=== PATIENT | male | born 1955 | race Hispanic/Latino ===

== ENCOUNTER 2024-07-10 17:13 | Inpatient (IN) | payer MEDICARE ==
[~2024-07-10] VITALS: Ht 180.3 cm; Wt 73.8 kg
[2024-07-10 17:38] LABS: BASOPHILS # (AUTO) 0.03 K/uL (0.00-0.20); BASOPHILS % (AUTO) 0.1 % (0.0-5.0); EOSINOPHILS # (AUTO) 0.09 K/uL (0.00-0.70); EOSINOPHILS % (AUTO) 0.4 % (0.0-8.0); IMMATURE GRANULOCYTE ABSOLUTE 0.19 K/uL (0-1); LYMPHOCYTES # (AUTO) 1.6 K/uL (1.0-4.8); MEAN CORPUSCULAR HEMOGLOBIN 31.6 pg (27.0-33.0); MEAN CORPUSCULAR HGB CONC 34.9 g/dL (32.0-36.0); MEAN CORPUSCULAR VOLUME 90.6 fL (79-99); MONOCYTES # (AUTO) 1.6 K/uL (0.1-1.0); MONOCYTES % (AUTO) 6.9 % (3.0-13.0); NEUTROPHILS # (AUTO) 19.7 K/uL (1.8-7.7); NEUTROPHILS % (AUTO) 84.8 % (40.0-77.0); PLATELET COUNT (AUTO) 144 K/uL (130-400); RED BLOOD CELL COUNT(AUTO) 5.41 MIL/uL (4.50-6.20); RED CELL DISTRIBUTION WIDTH 12.6 % (11.0-15.5); WHITE BLOOD COUNT (AUTO) 23.2 K/uL (4.8-10.8)
[2024-07-10 17:45] LABS: CREATININE 1.6 mg/dL (0.5-1.3)
[2024-07-10 18:01] LABS: B-TYPE NATRIURETIC PEPTIDE 123 pg/mL (0-100)
--- NOTE | 2024-07-10 18:02 | HMCIMG ---
Exam Type: CHEST 1VW Clinical Information: CHEST PAIN Comparison: None Findings: The lungs are clear of infiltrates. The heart is normal in size. The bony and soft tissue structures of the chest are unremarkable. Impression: Clear lungs.
--- NOTE | 2024-07-10 18:31 | ERN ---
General Chief Complaint: Palpitations Stated Complaint: HYPERTENSION, PALPITATIONS Time Seen by MD: 18:00 Time Seen by Midlevel: 18:00 Source: patient History of Present Illness Initial Comments Patient is a 68-year-old male with a past medical history of coronary artery disease, and hypertension presenting to the emergency department for evaluation of palpitations that started yesterday morning. He was seen by his primary care doctor earlier today and was sent to the emergency department for an abnormal EKG. The patient was hypertensive with a blood pressure of 220 at his clinic and he was given a blood pressure medication prior to arrival. Patient does state he has a history of ST depressions that has been normal for him for the last 20 years. Currently he denies any chest pain, palpitations, or any other symptoms. Allergies: Coded Allergies: No Known Allergies (Unverified Allergy, Unknown, 07/10/24) Past Medical History Past Medical History: Heart Disease, Hypertension, Kidney Infection Past Surgical History: Other Surgical History Other: HEART STENTS ROS Dictation CONSTITUTIONAL: Negative except for HPI HEAD/FACE: Negative except for HPI EENT: Negative except for HPI RESPIRATORY: Negative except for HPI GASTROINTESTINAL/ABDOMINAL: Negative except for HPI GENITOURINARY: Negative except for HPI MUSCULOSKELETAL: Negative except for HPI INTEGUMENTARY: Negative except for HPI NEUROLOGICAL/PSYCH: Negative except for HPI HEMATOLOGIC/LYMPHATIC: Negative except for HPI All Systems Negative, Except as noted above. 13 point review of systems assessed and all negative except for above. Physical Exam Physical Exam Dictation Vital Signs reviewed General Appearance: Alert, oriented x 3, no acute distress, well developed, nourished. Head and Face: non-traumatic. Eyes: PERRL, pink conjunctivas, eyelid no trauma, anterior chamber with arcus senilis. Ears: Pinnas intact and no signs of trauma or erythema ear canals clear and no discharge TM no erythema Nose: No discharge, no bleeding. Oropharynx: Mouth normal, tongue pink, pharynx clear,no erythema, tonsils no exudates, no abscesses noted, mucous membrane moist Neck: Supple, non-tender, no thyromegaly, no masses, no JVD, no bruits Breast:Deferred Chest:No tenderness, no crepitus, no paradoxical movement, no retractions Lungs:Clear, well-ventilated, symmetric, no rales, no wheezing, no rhonchi, no stridor, good breath sounds bilaterally Heart: Regular rate, regular rhythm, no murmur, no gallops Vascular: no peripheral edema, Abdomen: Soft, positive bowel sounds, nondistended, no guarding, nontender, no rebound, no masses no hepatomegaly, no splenomegaly, no Meza's sign, no hernias. Rectal: Deferred Genital: Deferred Neurological: Normal speech, motor function intact, sensory function intact Musculoskeletal: Neck nontender, full range of motion, back nontender, full range of motion, Extremities: nontender, full range of motion Skin: Color pink, dry, no turgor, no rash, no lacerations, no abrasions, no contusions. Lymphatic: Deferred Results Laboratory and Microbiology Lab and Micro Result Laboratory Tests Test 07/10/24 17:32 07/10/24 20:18 White Blood Count 23.2 K/uL (4.8-10.8) H Red Blood Count 5.41 MIL/uL (4.50-6.20) Hemoglobin 17.1 g/dL (14.0-18.0) Hematocrit 49.0 % (42-54) Mean Corpuscular Volume 90.6 fL (79-99) Mean Corpuscular Hemoglobin 31.6 pg (27.0-33.0) Mean Corpuscular Hemoglobin Concent 34.9 g/dL (32.0-36.0) Red Cell Distribution Width 12.6 % (11.0-15.5) Platelet Count 144 K/uL (130-400) Mean Platelet Volume 10.6 fL (7.5-10.5) H Immature Granulocyte % (Auto) 0.8 % (0-1) Neutrophils (%) (Auto) 84.8 % (40.0-77.0) H Lymphocytes (%) (Auto) 7.0 % (21.0-51.0) L Monocytes (%) (Auto) 6.9 % (3.0-13.0) Eosinophils (%) (Auto) 0.4 % (0.0-8.0) Basophils (%) (Auto) 0.1 % (0.0-5.0) Neutrophils # (Auto) 19.7 K/uL (1.8-7.7) H Lymphocytes # (Auto) 1.6 K/uL (1.0-4.8) Monocytes # (Auto) 1.6 K/uL (0.1-1.0) H Eosinophils # (Auto) 0.09 K/uL (0.00-0.70) Basophils # (Auto) 0.03 K/uL (0.00-0.20) Absolute Immature Granulocyte (auto 0.19 K/uL (0-1) Nucleated Red Blood Cells 0.0 % (0.0-0.19) White Cell Morphology Comment See comments Sodium Level 137 mmol/L (136-145) Potassium Level 4.0 mmol/L (3.5-5.1) Chloride Level 100 mmol/L (101-111) L Carbon Dioxide Level 26 mmol/L (21-32) Blood Urea Nitrogen 25 mg/dL (7-18) H Creatinine 1.6 mg/dL (0.5-1.3) H Glomerular Filtration Rate Calc 46 mL/min (>90) Random Glucose 137 mg/dL (70-105) H Hemoglobin A1c 5.4 % (4.0-6.0) Estimated Average Glucose (eAG) 108 mg/dL (70-126) Total Calcium 9.8 mg/dL (8.5-10.1) Total Creatine Kinase 289 U/L (21-232) H Troponin I High Sensitivity 135 ng/L (4-75) *H B-Type Natriuretic Peptide 123 pg/mL (0-100) H Urine Color LIGHT-YELLOW (YELLOW) Urine Appearance CLEAR (CLEAR) Urine pH 5.5 (5.0-8.0) Urine Specific [place] 1.012 (1.001-1.031) Urine Protein 100 mg/dL (NEGATIVE) H Urine Glucose (UA) NEGATIVE mg/dL (NEGATIVE) Urine Ketones NEGATIVE mg/dL (NEGATIVE) Urine Occult Blood MODERATE (NEGATIVE) H Urine Nitrate NEGATIVE (NEGATIVE) Urine Bilirubin NEGATIVE mg/dL (NEGATIVE) Urine Urobilinogen 0.2 mg/dL (0.2-1.0) Urine Leukocyte Esterase NEGATIVE Alfredo/uL Urine RBC 0-1 /HPF (0-1) Urine WBC 0-1 /HPF (0-1) Urine Bacteria None /HPF (None Seen) Urine Hyaline Casts 2-5 /LPF (0-1 /LPF) H Labs Reviewed?: Yes MDM MDM: Differential diagnosis: ACS, NSTEMI, cardiac arrhythmia, electrolyte abnormality, dehydration Rationale: Tests considered and ordered secondary to shared decision making include: Previous outside records reviewed: Old ER visits. Risk of complication and/or morbidity or mortality of patient management: None Medications-Per medication reconciliation Need for hospitalization: Patient does meet criteria for hospitalization. Need for emergency major/minor surgery: No There are no social concerns with this patient. Prescription drug management Prescriptions will include symptomatic care Patient's prior external medical records from other ER visits were reviewed by me as indicated. Prior testing and results from previous visits were reviewed. Prior tests were taken into account with medical decision making and resource utilization, independent historian/historians were used to obtain complete medical history. I independently interpreted the test that were performed, results were reviewed by me and considered findings on radiology if ordered. Medical management and examination interpretation discussions were had by me with other qualified healthcare professionals as indicated for the patient's care. ED Course Orders Procedure Category Date Status Time Vital Signs Per CPOE 07/10/24 Transmitted Routine 17:20 B-Type Natriuretic LAB 07/10/24 Complete Peptide 17:20 Chest 1vw RAD 07/10/24 Resulted 17:20 12 Lead Ekg Tracing- EKG 07/10/24 Complete Technical 17:20 Oxygen By Nc/Pulse Ox CPOE 07/10/24 Transmitted 17:20 Maintain Iv CPOE 07/10/24 Transmitted 17:20 Iv Insertion CPOE 07/10/24 Transmitted 17:20 Cardiac Monitoring CPOE 07/10/24 Transmitted 17:20 Pulse Oximetry With CPOE 07/10/24 Transmitted Vs And Prn 17:20 Cbc With Differential LAB 07/10/24 Complete 17:20 Activity: Br W/Brp CPOE 07/10/24 Transmitted With Assist 17:20 Creatine Kinase, Total LAB 07/10/24 Complete 17:20 Troponin I High LAB 07/10/24 Complete Sensitivity 17:20 Urinalysis Profile LAB 07/10/24 Complete 17:20 Basic Metabolic Panel LAB 07/10/24 Complete 17:20 12 Lead Ekg Tracing- EKG 07/10/24 Logged Technical 18:24 Aspirin 325mg Tab PHA 07/10/24 Complete (Aspirin 325mg Tab) 18:30 Current Medications Medications (Trade) Dose Ordered Sig/Eleni Route PRN Reason Start Time Stop Time Status Last Admin Dose Admin Aspirin (Aspirin 325mg Tab) 325 mg ONCE ONCE PO 07/10/24 18:30 07/10/24 18:31 DC 07/10/24 19:47 Vital Signs Date Time Temp Pulse Resp B/P (MAP) Pulse Ox O2 Delivery O2 Flow Rate FiO2 07/10/24 21:55 66 16 159/75 97 Room Air* 0 07/10/24 19:48 98.1 69 16 179/81 97 Room Air* 0 07/10/24 17:15 98.2 86 16 165/89 98 Room Air 0 [facility] [address] [place] [address] IMAGING REPORT Signed PATIENT: WILTON OROZCO MR#: [id number] : 1955 SEX: M AGE: 68 LOCATION: [facility] ORDER 20 STATUS: REG ER REPORT#: [id number] SERVICE 19 REASON: CHEST PAIN ORDERING PHYSICIAN: SAMSON OLSON PROCEDURE: CXR1VW - CHEST 1VW Exam Type: CHEST 1VW Clinical Information: CHEST PAIN Comparison: None Findings: The lungs are clear of infiltrates. The heart is normal in size. The bony and soft tissue structures of the chest are unremarkable. Impression: Clear lungs. DICTATED BY: KERWIN LARIOS MD DATE: 07/10/241757 ELECTRONICALLY SIGNED BY: KERWIN LARIOS MD DATE: 07/10/241801 HEART Score Response (Comments) Value History: Low suspicion (0) 0 EKG: Significant ST depression 2 Age: > 65yrs (+2) 2 Risk Factors: 1-2 risk factors (+1) 1 Initial Troponin: 1-3x Normal Limit (+1) 1 HEART Score Risk: Mod Risk for MACE (4-6) Total 6 DX & DISP Disposition: Inpatient Decision to Admit Date: Jul 10, 2024 Departure Impression: Primary Impression: Elevated troponin Additional Impressions: DIAN (acute kidney injury), Leukocytosis, Palpitations Condition: Stable Referrals: SELF,REFERRAL (PCP) I have reviewed the case, and I agree with, Diagnosis and Plan I performed the substantive portion of the visit. I have reviewed and personally made and approve the management plan that is documented in the note by myself or the ADELINE. I acknowledge for responsibility for the patient's management plan. SAMSON OLSON Jul 10, 2024 18:31
--- NOTE | 2024-07-10 19:03 | EKG ---
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
[2024-07-10] MEDS: ASPIRIN 325MG TAB PO ONE (19:47)
[2024-07-10 20:43] LABS: APPEARANCE,URINE CLEAR (CLEAR); BILIRUBIN,URINE NEGATIVE (NEGATIVE); COLOR,URINE LIGHT-YELLOW (YELLOW); GLUCOSE, URINE (UA) NEGATIVE (NEGATIVE); KETONES,URINE NEGATIVE (NEGATIVE); LEUKOCYTE ESTERASE ,URINE NEGATIVE Leu/uL (NEGATIVE); NITRATE,URINE NEGATIVE (NEGATIVE); OCCULT BLOOD,URINE MODERATE (NEGATIVE); PH,URINE 5.5 (5.0-8.0); PROTEIN,URINE 100 mg/dL (NEGATIVE); UROBILINOGEN,URINE 0.2 mg/dL (0.2-1.0)
[2024-07-10 20:51] LABS: ADD UA MICROSCOPIC YES
[2024-07-10 20:53] LABS: MUCUS,URINE RARE LPF (None Seen); RBC,URINE 0-1 /HPF (0-1); WBC,URINE 0-1 /HPF (0-1)
--- NOTE | 2024-07-10 23:08 | HP ---
[facility] Date of Service: Jul 10, 2024 Time of Service: 23:07 PCP: Self-referral HISTORY OF PRESENT ILLNESS: This is a 68-year-old male with past medical history of coronary artery disease, hypertension and hyperlipidemia who presents to the ED for complaints of palpitation which started yesterday morning and he checked his blood pressure and it was 210/100 he said. Patient states he was seen by his primary care doctor today and was sent to the emergency department for an abnormal EKG. Patient reports in the clinic his systolic blood pressure was 220 and he was given medication prior to ER arrival. Patient reports he has history of ST depressions for the past 20 years. Seen and examined patient in the ER awake alert and coherent. Patient denies chest pain, shortness of breath, nausea, vomiting and abdominal pain. Patient denies headache. Latest vital signs temperature 98.1, heart rate 66, blood pressure 159/75 saturation 97% on room air. Labs WBC 23 with negative left shift of neutrophils 84, hemoglobin 17, hematocrit 49, platelet count 144. Chloride 100, BUN 25, creatinine 1.6, GFR 46 glucose 137 total CK 89 troponin 135 to 111 BNP 123. Chest x-ray result is normal. EKG result revealed sinus rhythm heart rate [address] depression inferior leads. While in the ER patient received aspirin 325 mg p.o. we will admit patient for further medical management. REVIEW OF SYSTEMS CONSTITUTIONAL: Denies fevers, chills, or night sweats. No unintentional weight loss reported. NEUROLOGICAL: Denies headache, amaurosis fugax, motor weakness, sensory deficit, vertigo/spinning sensation, gait abnormalities, or tremors. ENT: No hearing loss, otalgia, otorrhea, rhinitis, rhinorrhea, hoarseness, or sore throat. CARDIOVASCULAR: Complaints of palpitation Denies any exertional angina, dyspnea on exertion, orthopnea, paroxysmal nocturnal dyspnea, life-threatening arrhythmias, claudication. PULMONARY: Denies any shortness of breath, cough, phlegm/sputum, hemoptysis, pleuritic chest pain. SLEEP: Denies morning headaches, daytime somnolence or napping. Denies difficulty falling asleep, staying asleep, waking from sleep. Denies knowledge of snoring. GASTROINTESTINAL: Denies any type of dysphagia to either liquids or solids. Denies nausea, vomiting, pyrosis, early satiety, abdominal pain, diarrhea, c onstipation, or changes in stool consistency or caliber. Denies coffee-ground emesis, hematemesis, hematochezia, or melanotic stools. GENITOURINARY: Denies frequency, urgency, nocturia, hematuria or incontinence (Storage/Irritative symptoms.) Low urinary stream, straining to void, urinary intermittency or hesitancy, splitting of the voiding stream, terminal dribbling. ENDOCRINOLOGIC: Denies polyuria, polydipsia, polyphagia or heat/cold intolerances. HEMATOLOGIC: Denies thrombophilia/previous clots, or coagulopathy/bleeding disorders. ONCOLOGIC: Denies personal history of malignancy. DERMATOLOGIC: Denies rashes or pruritus. PSYCHIATRIC: Denies any suicidal or homicidal ideation. Denies hallucinations. PAST MEDICAL HISTORY: [ Hypertension, hyperlipidemia and coronary artery disease] PAST SURGICAL HISTORY: [Heart stents ] PAST SOCIAL HISTORY: [ Patient denies alcohol tobacco and recreational drug use ] FAMILY HISTORY: [ Noncontributory ] Coded Allergies: No Known Allergies (Unverified Allergy, Unknown, 07/10/24) PHYSICAL EXAM GENERAL APPEARANCE: The patient is awake, alert, and oriented, in no acute cardiopulmonary distress. NEUROLOGICAL: Cranial nerves II-XII grossly intact. Motor is 5/5 in bilateral upper and lower extremities proximal to distal. No sensory deficits. HEENT: Face is symmetric. Pupils are equal and reactive. Extraocular movements are intact. NECK: Supple. No JVD. No thyromegaly. No submental, submandibular, pre- /postauricular, occipital or supraclavicular lymphadenopathy. CHEST: Normal chest expansion. No Telemetry. LUNGS: Absence of any rales, rhonchi or any wheezing. CARDIOVASCULAR: Regular. S1 and S2 normal. No appreciable rubs, murmurs or gallops. ABDOMEN: Soft, nontender, and nondistended. There is no rebound, voluntary guarding, or rigidity. : Deferred. No Sebastian. EXTREMITIES: Non-edematous and not cyanotic. No clubbing. Good capillary refill. SKIN: No skin breakdown. Vital Sign (Last 24 Hours) 07/10/24 07/10/24 19:48 21:55 Temp 98.1 Pulse 66 Resp 16 B/P (MAP) 159/75 Pulse Ox 97 O2 Delivery Room Air* O2 Flow Rate 0 FiO2 21 LABS: Laboratory: Test 07/10/24 20:18 07/10/24 17:32 Range/Units Urine Color LIGHT-YELLOW YELLOW Urine Appearance CLEAR CLEAR Urine pH 5.5 5.0-8.0 Urine Specific [place] 1.012 1.001-1.031 Urine Protein 100 H NEGATIVE mg/dL Urine Glucose (UA) NEGATIVE NEGATIVE mg/dL Urine Ketones NEGATIVE NEGATIVE mg/dL Urine Occult Blood MODERATE H NEGATIVE Urine Nitrate NEGATIVE NEGATIVE Urine Bilirubin NEGATIVE NEGATIVE mg/dL Urine Urobilinogen 0.2 0.2-1.0 mg/dL Urine Leukocyte Esterase NEGATIVE NEGATIVE Alfredo/uL Urine RBC 0-1 0-1 /HPF Urine WBC 0-1 0-1 /HPF Urine Bacteria None None Seen /HPF Urine Hyaline Casts 2-5 H 0-1 /LPF /LPF White Blood Count 23.2 H 4.8-10.8 K/uL Red Blood Count 5.41 4.50-6.20 MIL/uL Hemoglobin 17.1 14.0-18.0 g/dL Hematocrit 49.0 42-54 % Mean Corpuscular Volume 90.6 79-99 fL Mean Corpuscular Hemoglobin 31.6 27.0-33.0 pg Mean Corpuscular Hemoglobin Concent 34.9 32.0-36.0 g/dL Red Cell Distribution Width 12.6 11.0-15.5 % Platelet Count 144 130-400 K/uL Mean Platelet Volume 10.6 H 7.5-10.5 fL Immature Granulocyte % (Auto) 0.8 0-1 % Neutrophils (%) (Auto) 84.8 H 40.0-77.0 % Lymphocytes (%) (Auto) 7.0 L 21.0-51.0 % Monocytes (%) (Auto) 6.9 3.0-13.0 % Eosinophils (%) (Auto) 0.4 0.0-8.0 % Basophils (%) (Auto) 0.1 0.0-5.0 % Neutrophils # (Auto) 19.7 H 1.8-7.7 K/uL Lymphocytes # (Auto) 1.6 1.0-4.8 K/uL Monocytes # (Auto) 1.6 H 0.1-1.0 K/uL Eosinophils # (Auto) 0.09 0.00-0.70 K/uL Basophils # (Auto) 0.03 0.00-0.20 K/uL Absolute Immature Granulocyte (auto 0.19 0-1 K/uL Nucleated Red Blood Cells 0.0 0.0-0.19 % White Cell Morphology Comment See comments Sodium Level 137 136-145 mmol/L Potassium Level 4.0 3.5-5.1 mmol/L Chloride Level 100 L 101-111 mmol/L Carbon Dioxide Level 26 21-32 mmol/L Blood Urea Nitrogen 25 H 7-18 mg/dL Creatinine 1.6 H 0.5-1.3 mg/dL Glomerular Filtration Rate Calc 46 >90 mL/min Random Glucose 137 H 70-105 mg/dL Total Calcium 9.8 8.5-10.1 mg/dL Total Creatine Kinase 289 H 21-232 U/L Troponin I High Sensitivity 135 *H 4-75 ng/L B-Type Natriuretic Peptide 123 H 0-100 pg/mL DIAGNOSTICS / RADIOLOGY: [ ] ASSESSMENT: Elevated troponin POA Uncontrolled hypertension POA Severe leukocytosis POA Acute kidney injury POA Hyperglycemia POA Elevated BNP POA Coronary artery disease with cardiac stent POA PLAN: We will admit patient in medical telemetry We we will start on heart healthy diet We will start NS @ 100 ml / hr and re evaluate We will start patient on Rocephin 1 g IV b.i.d. We will start aspirin 81 mg p.o. daily We will start on atorvastatin 40 mg p.o. daily We will start on heparin 5000 subQ Q 8 hours for DVT prophylaxis We will start on Famotidine 20 mg p.o. daily for GI prophylaxis We will replace electrolytes as needed per protocol We will add prn medication for fever,pain,cough, nausea and vomiting We will reconcile home meds once medlist available We will trend troponin q.6 times 3 We will seek Cardiology consultation We will obtain echocardiogram Request urinalysis and follow up urinalysis result We will request labs in am Further orders to follow depending on above results Case discussed with attending physician and came up with above treatment and plan of care. ADVANCED CARE PLANNING 1. Which of the following were discussed? Hospice Care - No Therapeutic options - Yes Advance Directives - No Other discussions - 2. Discussed with who? Patient 3. Voluntary nature of this service was explained to the patient? Yes 4. Amount of time spent - __22 5. Reviewed by Physician? (if this service was performed by NPP) Yes Patient seen and examined by me. Agree with note by BLOCKER AUTOMATIC SEE ADDITIONAL ORDERS PER CHART DISCUSSED WITH NURSING STAFF ANTONIO DEAN SAFETY GROOVING MACHINE OPERATOR Jul 10, 2024 23:07
[2024-07-10] MEDS ORDERED: NITROGLYCERIN 0.4 MG SL TAB SL PRN (23:30)
[2024-07-10] MEDS ORDERED: acetaMINOPHEN 325 MG TAB PO PRN ×2 (23:30)
[2024-07-10] MEDS: 0.9%NACL 1000ML 1,000 ML IV SCH (23:48)
[2024-07-10] MEDS: HEParin 5,000 UNIT VIAL SQ SCH (23:48)
[2024-07-11] VITALS (9 sets, daily range): BP systolic 106–139; BP diastolic 52–73; PULSE 56–81; RESP 17–18; TEMP 97.6–99.1; O2SAT 66–99
[2024-07-11 01:42] LABS: HEMOGLOBIN A1C 5.4 % (4.0-6.0)
--- NOTE | 2024-07-11 02:35 | NUR ---
PATIENT WALKED INTO NURSES STATION TO ADVISE ME THAT HIS BLOOD PRESSURE WAS HIGH. PATIENT ESCORTED BACK TO HIS ROOM AND ATTACHED TO MACHINE PRESSER, BLOOD PRESSURE AND O2 SAT. PATIENT SEEMED ANXIOUS ABOUT HIS BLOOD PRESSURE BEING HIGH. AFTER TAKING HIS BLOOD PRESSURE, PATIENT MADE THE STATEMENT, "IF NO ONE IS GOING TO GIVE ME MY BLOOD PRESSURE MEDICATIONS, THEN I AM GOING TO TAKE MY OWN." PATIENT PROCEEDED TO TAKE HIS MEDICATIONS. I ASKED THE PATIENT WHAT WAS HE TAKING, PATIENT REPLIED, "ITS IN MY CHART!" PRIMARY NURSE FOR PATIENT INFORMED
[2024-07-11] MEDS: ondanSETRON 4MG INJ IV PRN (03:17)
[2024-07-11] MEDS: hydrALAZine 20MG/ML VIAL IV PRN (03:17)
[2024-07-11] MEDS: cloNIDine HCL 0.1 MG TABLET PO ONE (04:25)
[2024-07-11] MEDS: cloNIDine HCL 0.1 MG TABLET ONE (04:26)
[2024-07-11] MEDS ORDERED: ASPI-1443 PO (04:27)
[2024-07-11] MEDS ORDERED: LISI10TA24 PO (04:27)
[2024-07-11] MEDS ORDERED: METO25 PO (04:27)
[2024-07-11] MEDS ORDERED: AMLO-257 PO (04:27)
[2024-07-11] MEDS ORDERED: ATOR40TA71 PO (04:28)
[2024-07-11 06:22] LABS: BASOPHILS # (AUTO) 0.02 K/uL (0.00-0.20); BASOPHILS % (AUTO) 0.1 % (0.0-5.0); EOSINOPHILS # (AUTO) 0.03 K/uL (0.00-0.70); EOSINOPHILS % (AUTO) 0.2 % (0.0-8.0); HEMATOCRIT 46.9 % (42-54); IMMATURE GRANULOCYTE ABSOLUTE 0.08 K/uL (0-1); LYMPHOCYTES # (AUTO) 1.4 K/uL (1.0-4.8); MEAN CORPUSCULAR HEMOGLOBIN 31.6 pg (27.0-33.0); MEAN CORPUSCULAR HGB CONC 34.1 g/dL (32.0-36.0); MEAN CORPUSCULAR VOLUME 92.5 fL (79-99); MONOCYTES # (AUTO) 1.1 K/uL (0.1-1.0); MONOCYTES % (AUTO) 7.5 % (3.0-13.0); NEUTROPHILS # (AUTO) 11.6 K/uL (1.8-7.7); NEUTROPHILS % (AUTO) 81.6 % (40.0-77.0); PLATELET COUNT (AUTO) 120 K/uL (130-400); RED BLOOD CELL COUNT(AUTO) 5.07 MIL/uL (4.50-6.20); RED CELL DISTRIBUTION WIDTH 12.8 % (11.0-15.5); WHITE BLOOD COUNT (AUTO) 14.2 K/uL (4.8-10.8)
[2024-07-11 06:57] LABS: ALBUMIN 3.6 g/dL (3.5-5.0); BILIRUBIN,TOTAL 0.8 mg/dL (0.2-1.0); CREATININE 1.8 mg/dL (0.5-1.3); MAGNESIUM 1.8 mg/dL (1.80-2.40); POTASSIUM 4.7 mmol/L (3.5-5.1); THYROID STIMULATING HORMONE 0.58 uIU/mL (0.36-3.74); TOTAL PROTEIN, SERUM 6.5 g/dL (6.0-8.3)
--- NOTE | 2024-07-11 07:03 | EKG ---
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 : 1955 Requested By: SAMSON OLSON Order Number: [id number] Reading MD: Juarez Salazar Measurements Intervals [place] Rate: 93 P: 55 CA: 159 QRS: 82 QRSD: 116 T: 39 QT: 385 QTc: 478 Interpretive Statements Sinus rhythm Nonspecific intraventricular conduction delay Low voltage, precordial leads Compared to ECG 07/10/2024 19:00:49 Intraventricular conduction delay now present Low QRS voltage now present Ventricular premature complex(es) no longer present ST (T wave) deviation no longer present Electronically Signed On 07-13-2024 19:35:41 CDT by Juarez Salazar Please click the below link to view image of tracing.
[2024-07-11] MEDS: cefTRIAXone 1G VIAL IV SCH (08:59)
[2024-07-11] MEDS: ASPIRIN 81 MG EC TAB PO SCH (09:00)
[2024-07-11] MEDS: FAMOTIDINE 20MG TAB PO SCH (09:00)
[2024-07-11 10:45] LABS: ERYTHROCYTE SEDIMENTATION RATE 3 MM/HR (0-20)
--- NOTE | 2024-07-11 11:34 | NUR ---
DCP: home with friend Luis lives in [facility] and comes to the every 6 months for medical care and RX needs. Pt stated that he just got into town and began to feel ill. Pt denies having DME, home health, or provider services. Pt states able to complete ADLs independently. At [place] pt states that he will stay in town for a few days with friend Kirstie Ramires [phone] and will then go back to [facility]. Addendum: 07/11/24 at 1137 by ROCCO DAVE SS Amended: Links added.
--- NOTE | 2024-07-11 15:53 | PN ---
[facility] PROGRESS NOTE Date of Service: Jul 11, 2024 Time of Service: 15:44 SUBJECTIVE: [68-year-old male admitted due to complaints of palpitations. Patient reported that he felt his heart beating strong after drinking black coffee. Patient [place] not have Cardiology in the [place], his patient navigator is from [facility]. Patient was visiting [place] when this happened. He normally lives in [place]. On this examination, patient denies any chest pain nor palpitations. ] REVIEW OF SYSTEMS CONSTITUTIONAL: Denies fevers, chills, or night sweats. No unintentional weight loss reported. NEUROLOGICAL: Denies headache, amaurosis fugax, motor weakness, sensory deficit, vertigo/spinning sensation, gait abnormalities, or tremors. ENT: No hearing loss, otalgia, otorrhea, rhinitis, rhinorrhea, hoarseness, or sore throat. CARDIOVASCULAR: Complaints of palpitation Denies any exertional angina, d yspnea on exertion, orthopnea, paroxysmal nocturnal dyspnea, life-threatening arrhythmias, claudication. PULMONARY: Denies any shortness of breath, cough, phlegm/sputum, hemoptysis, pleuritic chest pain. SLEEP: Denies morning headaches, daytime somnolence or napping. Denies difficulty falling asleep, staying asleep, waking from sleep. Denies knowledge of snoring. GASTROINTESTINAL: Denies any type of dysphagia to either liquids or solids. Denies nausea, vomiting, pyrosis, early satiety, abdominal pain, diarrhea, constipation, or changes in stool consistency or caliber. Denies coffee-ground emesis, hematemesis, hematochezia, or melanotic stools. GENITOURINARY: Denies frequency, urgency, nocturia, hematuria or incontinence (Storage/Irritative symptoms.) Low urinary stream, straining to void, urinary intermittency or hesitancy, splitting of the voiding stream, terminal dribbling. ENDOCRINOLOGIC: Denies polyuria, polydipsia, polyphagia or heat/cold intolerances. HEMATOLOGIC: Denies thrombophilia/previous clots, or coagulopathy/bleeding disorders. ONCOLOGIC: Denies personal history of malignancy. DERMATOLOGIC: Denies rashes or pruritus. PSYCHIATRIC: Denies any suicidal or homicidal ideation. Denies hallucinations. PHYSICAL EXAM GENERAL APPEARANCE: The patient is awake, alert, and oriented, in no acute cardiopulmonary distress. NEUROLOGICAL: Cranial nerves II-XII grossly intact. Motor is 5/5 in bilateral upper and lower extremities proximal to distal. No sensory deficits. HEENT: Face is symmetric. Pupils are equal and reactive. Extraocular movements are intact. NECK: Supple. No JVD. No thyromegaly. No submental, submandibular, pre- /postauricular, occipital or supraclavicular lymphadenopathy. CHEST: Normal chest expansion. No Telemetry. LUNGS: Absence of any rales, rhonchi or any wheezing. CARDIOVASCULAR: Regular. S1 and S2 normal. No appreciable rubs, murmurs or gallops. ABDOMEN: Soft, nontender, and nondistended. There is no rebound, voluntary guarding, or rigidity. : Deferred. No Sebastian. EXTREMITIES: Non-edematous and not cyanotic. No clubbing. Good capillary refill. SKIN: No skin breakdown. Vital Signs (last 8hr) Date Time Temp Pulse Resp B/P (MAP) Pulse Ox O2 Delivery O2 Flow Rate FiO2 07/11/24 11:30 98.4 75 18 129/73 99 Room Air 07/11/24 08:05 97.5 81 18 139/65 99 Room Air LABS: Laboratory: Test 07/11/24 11:19 07/11/24 06:10 07/10/24 20:18 07/10/24 17:32 Range/Units Troponin I High Sensitivity 70 4-75 ng/L White Blood Count 14.2 #H 4.8-10.8 K/uL Red Blood Count 5.07 4.50-6.20 MIL/uL Hemoglobin 16.0 14.0-18.0 g/dL Hematocrit 46.9 42-54 % Mean Corpuscular Volume 92.5 79-99 fL Mean Corpuscular Hemoglobin 31.6 27.0-33.0 pg Mean Corpuscular Hemoglobin Concent 34.1 32.0-36.0 g/dL Red Cell Distribution Width 12.8 11.0-15.5 % Platelet Count 120 L 130-400 K/uL Mean Platelet Volume 11.2 H 7.5-10.5 fL Immature Granulocyte % (Auto) 0.6 0-1 % Neutrophils (%) (Auto) 81.6 H 40.0-77.0 % Lymphocytes (%) (Auto) 10.0 L 21.0-51.0 % Monocytes (%) (Auto) 7.5 3.0-13.0 % Eosinophils (%) (Auto) 0.2 0.0-8.0 % Basophils (%) (Auto) 0.1 0.0-5.0 % Neutrophils # (Auto) 11.6 H 1.8-7.7 K/uL Lymphocytes # (Auto) 1.4 1.0-4.8 K/uL Monocytes # (Auto) 1.1 H 0.1-1.0 K/uL Eosinophils # (Auto) 0.03 0.00-0.70 K/uL Basophils # (Auto) 0.02 0.00-0.20 K/uL Absolute Immature Granulocyte (auto 0.08 0-1 K/uL Nucleated Red Blood Cells 0.0 0.0-0.19 % Erythrocyte Sedimentation Rate 3 0-20 MM/HR Sodium Level 139 136-145 mmol/L Potassium Level 4.7 3.5-5.1 mmol/L Chloride Level 103 101-111 mmol/L Carbon Dioxide Level 29 21-32 mmol/L Blood Urea Nitrogen 29 H 7-18 mg/dL Creatinine 1.8 H 0.5-1.3 mg/dL Glomerular Filtration Rate Calc 40 >90 mL/min Random Glucose 119 H 70-105 mg/dL Total Calcium 9.2 8.5-10.1 mg/dL Magnesium Level 1.80 1.80-2.40 mg/dL Total Bilirubin 0.8 0.2-1.0 mg/dL Aspartate Amino Transf (AST/SGOT) 36 10-37 U/L Alanine Aminotransferase (ALT/SGPT) 31 12-78 U/L Alkaline Phosphatase 61 50-136 U/L Total Creatine Kinase 274 H 21-232 U/L Total Protein 6.5 6.0-8.3 g/dL Albumin 3.6 3.5-5.0 g/dL Triglycerides Level 75 30-200 mg/dL Cholesterol Level 108 <200 mg/dL LDL Cholesterol 36 0-99 mg/dL HDL Cholesterol 61 29-71 mg/dL Thyroid Stimulating Hormone (TSH) 0.58 0.36-3.74 uIU/mL Urine Color LIGHT-YELLOW YELLOW Urine Appearance CLEAR CLEAR Urine pH 5.5 5.0-8.0 Urine Specific [place] 1.012 1.001-1.031 Urine Protein 100 H NEGATIVE mg/dL Urine Glucose (UA) NEGATIVE NEGATIVE mg/dL Urine Ketones NEGATIVE NEGATIVE mg/dL Urine Occult Blood MODERATE H NEGATIVE Urine Nitrate NEGATIVE NEGATIVE Urine Bilirubin NEGATIVE NEGATIVE mg/dL Urine Urobilinogen 0.2 0.2-1.0 mg/dL Urine Leukocyte Esterase NEGATIVE NEGATIVE Alfredo/uL Urine RBC 0-1 0-1 /HPF Urine WBC 0-1 0-1 /HPF Urine Bacteria None None Seen /HPF Urine Hyaline Casts 2-5 H 0-1 /LPF /LPF White Cell Morphology Comment See comments Hemoglobin A1c 5.4 4.0-6.0 % Estimated Average Glucose (eAG) 108 70-126 mg/dL B-Type Natriuretic Peptide 123 H 0-100 pg/mL Current Medications Medications (Trade) Dose Ordered Sig/Eleni Route PRN Reason Start Time Stop Time Status Last Admin Dose Admin Acetaminophen (TYLenol 325MG TAB) 650 mg Q4H PRN PO MILD PAIN (1-3) 07/10/24 23:30 08/09/24 23:29 Acetaminophen (TYLenol 325MG TAB) 650 mg Q6H PRN PO TEMPERATURE GREATER THAN 101.5 07/10/24 23:30 08/09/24 23:29 Amlodipine Besylate (NorvASC 5MG TAB) 5 mg DAILY PO 07/12/24 09:00 08/11/24 08:59 Aspirin (Aspirin 81mg Ec Tab) 81 mg DAILY PO 07/11/24 09:00 07/11/24 10:22 DC 07/11/24 09:00 81 MG Aspirin (Aspirin 81mg Ec Tab) 81 mg DAILY PO 07/12/24 09:00 08/11/24 08:59 Atorvastatin Calcium (LIPItor 40MG) 40 mg DAILY PO 07/12/24 09:00 08/11/24 08:59 Atorvastatin Calcium (LIPItor 40MG) 40 mg HS PO 07/11/24 21:00 07/11/24 10:22 DC Ceftriaxone Sodium (ROCEphine 1G INJ) 1 gm BID IV 07/11/24 09:00 07/21/24 08:59 07/11/24 08:59 1 GM Famotidine (Pepcid 20mg Tab) 20 mg DAILY PO 07/11/24 09:00 08/10/24 08:59 07/11/24 09:00 20 MG Heparin Sodium (Porcine) (HEParin 5,000 UNIT VIAL) 5,000 unit Q8H SQ 07/10/24 23:30 08/09/24 23:29 07/11/24 07:00 5,000 UNIT Hydralazine HCl (APRESOLine 20MG INJ) 10 mg Q6H PRN IV For:SBP above 160;DBP above 90 07/10/24 23:30 08/09/24 23:29 07/11/24 03:17 10 MG Lisinopril (Prinivil 10mg) 10 mg BID PO 07/11/24 21:00 08/10/24 20:59 Metoprolol Tartrate (loprESSOR) 25 mg DAILY PO 07/12/24 09:00 08/11/24 08:59 Nitroglycerin (Nitrostat) 0.4 mg PROTOCOL PRN SL CHEST PAIN 07/10/24 23:30 08/09/24 23:29 Ondansetron HCl (zoFRAN 4MG INJ) 4 mg Q6H PRN IV NAUSEA/VOMITING 07/10/24 23:30 08/09/24 23:29 07/11/24 03:17 4 MG Sodium Chloride 1,000 ml @ 100 mls/hr Q10H IV 07/10/24 23:30 08/09/24 23:29 07/11/24 09:00 100 MLS/HR DIAGNOSTICS / RADIOLOGY: [ ] ASSESSMENT: Elevated troponin POA Uncontrolled hypertension POA Severe leukocytosis POA Acute kidney injury POA Hyperglycemia POA Elevated BNP POA Coronary artery disease with cardiac stent POA PLAN: Continue medical telemetry Continue heart healthy diet IV fluids can be discontinued Continue Rocephin 1 g IV b.i.d. Continue aspirin 81 mg p.o. daily Continue atorvastatin 40 mg p.o. daily Continue heparin 5000 subQ Q 8 hours for DVT prophylaxis, may probably be discontinued as patient is ambulatory Continue Famotidine 20 mg p.o. daily for GI prophylaxis We will replace electrolytes as needed per protocol We will add prn medication for fever,pain,cough, nausea and vomiting We will reconcile home meds once medlist available We will trend troponin q.6 times 3 We will seek Cardiology consultation We will obtain echocardiogram Request urinalysis and follow up urinalysis result We will request labs in am Further orders to follow depending on above results Case discussed with attending physician and came up with above treatment and plan of care. ATTESTATION BY PHYSICIAN I have seen and examined the patient. I reviewed the documentation, medical decision making, and treatment plan as noted by the mid-level provider above. I agree with the findings and plan of care. Karen Celis MD, [facility] Jul 11, 2024 15:53
--- NOTE | 2024-07-11 16:48 | CONS ---
Cardiology Consult Note Attending Service Greeter: Dr. Juarez Patricia Consulting Physician: Hospitalist Date of Service: 07/11/2024 Reason for Consult: Elevated troponin HPI: This is a 68y/o male with a past medical history of HTN, HLP, and CAD s/p PCI with JESUS placement (Resolute Integrity 3.0x26 mm) in the mid RCA done 03/01/2012, PCI with JESUS placement (Resolute Integrity 3.0x30 mm) in the proximal RCA done on 03/24/2013, and PCI with JESUS placement (Resolute Integrity 3.5x18 mm) in the proximal Ramus intermediate done on 07/10/[address] Chester Wood at [facility] in [place], [place] who presents with uncontrolled blood pressures of 2 days in duration. The symptoms began spontaneously, shortly after drinking a strong cup of coffee, and over the ensuing 48 hours his symptoms were constant and progressively worsened. Associated symptoms include headache, BP >200/100 mmHg, abdominal pain, nausea, vomiting, and fever. Pertinent negatives include dizziness, syncope, chest pain, chest pressure, palpitations, shortness of breath, PND, orthopnea, weight gain, lower extremity swelling, diaphoresis, or chills. The patient's progression of symptoms prompted him to seek a higher level of care. While on the inpatient service, laboratory data identified an elevated HS troponin I level. Cardiology was consulted for treatment recommendations. PMH: Listed above PSH: Listed above FH: Noncontributory. SH: Denies alcohol, tobacco, or illicit drug use. Allergies: Coded Allergies: No Known Allergies (Unverified Allergy, Unknown, 07/10/24) Review of systems: General: As per the HPI HEENT: Denies changes in vision, earache or sore throat Neck: Denies pain or stiffness Cardio: As per the HPI. Pulm: Denies SOB, coughing or wheezing GI: As per the HPI. MSK: Positive for left elbow mass. Heme: Denies anemia, easy bruising, or bleeding. Neuro: As per the HPI. Psyche: Denies anxiety, depression, or suicidal ideation. Physical Exam: Vital Signs Date Time Temp Pulse Resp B/P (MAP) Pulse Ox O2 Delivery O2 Flow Rate FiO2 07/11/24 11:30 98.4 75 18 129/73 99 Room Air 07/11/24 08:00 0 21 General: Alert and oriented. NAD HEENT: NC/AT. Oral mucosa is moist. Neck: No masses, JVD, or carotid bruits Lungs: NRD. SCM. Bilateral air entry. CTA. No obvious wheezing, rales or rhonchi. Cardio: Regular rate. Normal S1 and S2. +S4. Ectopic beats noted. PMI was not displaced. Abdomen: Soft. NT. ND. Normal active bowel sounds x 4 quadrants. Extremities: Diminished throughout. Neuro: CN II-XII were grossly intact. No obvious focal deficits. Labs: Laboratory Tests Test 07/10/24 17:32 07/10/24 20:18 07/10/24 23:34 07/11/24 06:10 Range/Units White Blood Count 23.2 H 14.2 #H 4.8-10.8 K/uL Red Blood Count 5.41 5.07 4.50-6.20 MIL/uL Hemoglobin 17.1 16.0 14.0-18.0 g/dL Hematocrit 49.0 46.9 42-54 % Mean Corpuscular Volume 90.6 92.5 79-99 fL Mean Corpuscular Hemoglobin 31.6 31.6 27.0-33.0 pg Mean Corpuscular Hemoglobin Concent 34.9 34.1 32.0-36.0 g/dL Red Cell Distribution Width 12.6 12.8 11.0-15.5 % Platelet Count 144 120 L 130-400 K/uL Mean Platelet Volume 10.6 H 11.2 H 7.5-10.5 fL Immature Granulocyte % (Auto) 0.8 0.6 0-1 % Neutrophils (%) (Auto) 84.8 H 81.6 H 40.0-77.0 % Lymphocytes (%) (Auto) 7.0 L 10.0 L 21.0-51.0 % Monocytes (%) (Auto) 6.9 7.5 3.0-13.0 % Eosinophils (%) (Auto) 0.4 0.2 0.0-8.0 % Basophils (%) (Auto) 0.1 0.1 0.0-5.0 % Neutrophils # (Auto) 19.7 H 11.6 H 1.8-7.7 K/uL Lymphocytes # (Auto) 1.6 1.4 1.0-4.8 K/uL Monocytes # (Auto) 1.6 H 1.1 H 0.1-1.0 K/uL Eosinophils # (Auto) 0.09 0.03 0.00-0.70 K/uL Basophils # (Auto) 0.03 0.02 0.00-0.20 K/uL Absolute Immature Granulocyte (auto 0.19 0.08 0-1 K/uL Nucleated Red Blood Cells 0.0 0.0 0.0-0.19 % White Cell Morphology Comment See comments Sodium Level 137 139 136-145 mmol/L Potassium Level 4.0 4.7 3.5-5.1 mmol/L Chloride Level 100 L 103 101-111 mmol/L Carbon Dioxide Level 26 29 21-32 mmol/L Blood Urea Nitrogen 25 H 29 H 7-18 mg/dL Creatinine 1.6 H 1.8 H 0.5-1.3 mg/dL Glomerular Filtration Rate Calc 46 40 >90 mL/min Random Glucose 137 H 119 H 70-105 mg/dL Hemoglobin A1c 5.4 4.0-6.0 % Estimated Average Glucose (eAG) 108 70-126 mg/dL Total Calcium 9.8 9.2 8.5-10.1 mg/dL Total Creatine Kinase 289 H 274 H 21-232 U/L Troponin I High Sensitivity 135 *H 111 *H 96 *H 4-75 ng/L B-Type Natriuretic Peptide 123 H 0-100 pg/mL Urine Color LIGHT-YELLOW YELLOW Urine Appearance CLEAR CLEAR Urine pH 5.5 5.0-8.0 Urine Specific [place] 1.012 1.001-1.031 Urine Protein 100 H NEGATIVE mg/dL Urine Glucose (UA) NEGATIVE NEGATIVE mg/dL Urine Ketones NEGATIVE NEGATIVE mg/dL Urine Occult Blood MODERATE H NEGATIVE Urine Nitrate NEGATIVE NEGATIVE Urine Bilirubin NEGATIVE NEGATIVE mg/dL Urine Urobilinogen 0.2 0.2-1.0 mg/dL Urine Leukocyte Esterase NEGATIVE NEGATIVE Alfredo/uL Urine RBC 0-1 0-1 /HPF Urine WBC 0-1 0-1 /HPF Urine Bacteria None None Seen /HPF Urine Hyaline Casts 2-5 H 0-1 /LPF /LPF Erythrocyte Sedimentation Rate 3 0-20 MM/HR Magnesium Level 1.80 1.80-2.40 mg/dL Total Bilirubin 0.8 0.2-1.0 mg/dL Aspartate Amino Transf (AST/SGOT) 36 10-37 U/L Alanine Aminotransferase (ALT/SGPT) 31 12-78 U/L Alkaline Phosphatase 61 50-136 U/L Total Protein 6.5 6.0-8.3 g/dL Albumin 3.6 3.5-5.0 g/dL Triglycerides Level 75 30-200 mg/dL Cholesterol Level 108 <200 mg/dL LDL Cholesterol 36 0-99 mg/dL HDL Cholesterol 61 29-71 mg/dL Thyroid Stimulating Hormone (TSH) 0.58 0.36-3.74 uIU/mL Test 07/11/24 11:19 Range/Units Troponin I High Sensitivity 70 4-75 ng/L Assessment: -Hypertensive emergency -Leukocytosis -Gastroenteritis -Volume depletion -DIAN -Elevated troponin (type II [place]) -Elevated CK levels, improving -PVCs -CAD s/p PCI with JESUS placement (Resolute Integrity 3.0x26 mm) in the mid RCA done 03/01/2012, PCI with JESUS placement (Resolute Integrity 3.0x30 mm) in the proximal RCA done on 03/24/2013, and PCI with JESUS placement (Resolute Integrity 3.5x18 mm) in the proximal Ramus intermediate done on 07/10/[address] Chester Wood at [facility] in [place], [place] -[facility] Plan: 1. Hypertensive emergency -End organ damage: Elevated troponin, DIAN -In order to optimize BP control while simplifying the patient's medication regimen, we will stop metoprolol tartrate, lisinopril, and amlodipine, and will instead start the patient on verapamil SR 120 mg BID (which will also address his PVCs) and nifedipine ER 30 mg daily. -Antihypertensive therapy should be titrated in order to achieve a BP goal of less than 140/90 mmHg. 2. Elevated troponin -Stable -Cardiac enzymes-HS troponin I: 123> 111 > 96 > 70 -The elevated troponin is thought to be a type II [place] (demand ischemia) induced by the hypertensive emergency and DIAN and not secondary to ACS. As a result, we do not recommend any further ischemic cardiac workup and instead we recommend optimize BP control. -In the meantime, the patient will continue on aspirin 81 mg daily, verapamil SR 120 mg BID, and atorvastatin 40 mg QHS. -In addition, a 2D echocardiogram has been ordered to assess the patient's systolic/diastolic function and for any wall motion abnormalities. Thank you for this interesting consult and allowing us to participate in the care of your patient. This case was discussed with my Supervising Physician, Dr. Juarez Patricia, and the above mentioned plan was formulated and agreed upon. -Consult Note written by Shaunna Wheatley, MSN, [employer]ANCIAL SERVICES ASSOCIATE, AGACNP-BC SHAUNNA WHEATLEY NP Jul 11, 2024 16:48
[2024-07-11 17:04] LABS: AMPHET/METH SCREEN,URINE NEGATIVE (NEGATIVE); BARBITURATE SCREEN, URINE NEGATIVE (NEGATIVE); BENZODIAZEPINES SCREEN,URINE NEGATIVE (NEGATIVE); CANNABINOID SCREEN,URINE POSITIVE (NEGATIVE); COCAINE SCREEN,URINE NEGATIVE (NEGATIVE); OPIATE SCREEN,URINE NEGATIVE (NEGATIVE); PHENCYCLIDINE SCREEN,URINE NEGATIVE (NEGATIVE)
[2024-07-11] MEDS ORDERED: carVEDIlol 6.25 MG TABLET PO SCH (21:00)
[2024-07-11] MEDS ORDERED: LISINOPRIL 10 MG TABLET PO SCH (21:00)
[2024-07-11] MEDS ORDERED: atorVAStatin 40 MG TABLET PO SCH (21:00)
[2024-07-11] MEDS: VERAPAMIL HCL 240 MG SRTAB PO SCH (21:31)
--- NOTE | 2024-07-12 00:26 | HMCSR ---
APPROVED REPORT EXAM: Two-dimensional and M-mode echocardiogram with Doppler and color Doppler. INDICATION ICD: Palpitations 2D Dimensions RVDd4.1 cmLVEF(%)77.1 (>50%)LVED Vol(simp.)67.1 mL IVSd0.9 (0.7-1.1cm)FS(%)45 %LVES Vol(simp.)24.9 mL LVDd4.1 (3.8-5.6cm)LA (2D)4.1 (1.6-4.0cm)LVEF(%, simp.)63 % PWd1.3 (0.7-1.1cm)Ao Root(2D)2.9 (2.0-3.7cm)LA ESV INDEX (BP)35.27 mL/m2 LVDs2.2 (2.5-4.0cm)LVOT diam2.1 (1.8-2.4cm) IVC diam1.6 cm Deformation Strain Apical 4-20.1 % Apical 2-19.4 % Apical 3-18.7 % Global Strain-19.4 % M-Mode Dimensions EPSS0.5 cm LA (MM)4.3 (1.6-4.0cm) Ao Root(MM)2.8 (2.0-3.7cm) Aortic Valve AoV Vmax1.8 m/Amy Peak GR12.6 mmHgLVOT Vmax1.4 m/s AoV VTI0.4 mAo Mean GR7.4 mmHgLVOT VTI0.32 m GRACY (VMAX)2.79 cm2AVA (VTI) 2.8 cm2 Mitral Valve MV E Vmax63.9 cm/sDECEL Flke628 ms MV A Vmax94.7 cm/sP 1/2 T93 ms E/A ratio0.7MVA (PHT)2.4 cm2 TDI E/E' Medial8.5E/E' Lateral6.7 Medial E' Peak V7.54 cm/sLateral E' Peak V9.53 cm/s Pulmonary Valve PV Vmax1.4 m/s PV Peak GR8.4 mmHg Left Ventricle The left ventricle is normal size. No regional wall motion abnormalities noted. Mild concentric left ventricular hypertrophy. Left ventricular systolic function is normal, estimated LVEF 60 to 65%. Stag e I diastolic dysfunction. Right Ventricle The right ventricle is normal size. The right ventricular systolic function is normal. Atria The left atrium is mildly dilated, 35 mL/m. The right atrium size is normal. Aortic Valve Aortic valve is trileaflet. The leaflets are thickened and calcified. Trace aortic regurgitation. The re is aortic sclerosis without stenosis, peak velocity 1.7 m/s, mean gradient 7 mmHg. Mitral Valve The mitral valve is normal in structure. Trace mitral regurgitation. There is no mitral valve stenosi s. Tricuspid Valve The tricuspid valve is normal in structure. Trace tricuspid regurgitation. RVSP is normal. Pulmonic Valve Pulmonic valve is not well visualized. Great Vessels The aortic root is normal in size. The IVC is normal in size and collapses >50% with inspiration. Pericardium There is no pericardial effusion. Conclusion The left atrium is mildly dilated, 35 mL/m. Mild concentric left ventricular hypertrophy. No regional wall motion abnormalities noted. Left ventricular systolic function is normal, estimated LVEF 60 to 65%. Stage I diastolic dysfunction. Trace aortic regurgitation. Trace mitral regurgitation. Trace tricuspid regurgitation. PASP is normal. There is no pericardial effusion.
--- NOTE | 2024-07-12 01:30 | NUR ---
[facility] ARRIVED AND PATIENT WHEELED DOWN. IV REMOVED INTACT. NO TELE PACK. ALL BELONGINGS TAKEN BY PATIENT. ALL QUESTIONS AND CONCERNS ANSWERED.
[2024-07-12 04:11] VITALS: BP 134/72; PULSE 59; RESP 18; TEMP 98.4
[2024-07-12 05:05] LABS: HEMATOCRIT 43.6 % (42-54); MEAN CORPUSCULAR HGB CONC 33.9 g/dL (32.0-36.0); MEAN CORPUSCULAR VOLUME 91.4 fL (79-99); RED BLOOD CELL COUNT(AUTO) 4.77 MIL/uL (4.50-6.20); RED CELL DISTRIBUTION WIDTH 12.6 % (11.0-15.5); WHITE BLOOD COUNT (AUTO) 12.3 K/uL (4.8-10.8)
[2024-07-12 05:34] LABS: CREATININE 1.8 mg/dL (0.5-1.3); POTASSIUM 4.2 mmol/L (3.5-5.1)
[2024-07-12 08:00] VITALS: O2SAT 97
[2024-07-12 08:16] VITALS: BP 164/70; PULSE 63; RESP 19; TEMP 97.9
[2024-07-12] MEDS ORDERED: nifeDIPine ER 30 MG TAB PO SCH (09:00)
[2024-07-12] MEDS ORDERED: amLODIPine 5 MG TAB PO SCH (09:00)
[2024-07-12] MEDS ORDERED: metoPROLOL tartRATE 25 MG TAB PO SCH (09:00)
[2024-07-12] MEDS: atorVAStatin 40 MG TABLET PO SCH (09:01)
[2024-07-12] MEDS: ASPIRIN 81 MG EC TAB PO SCH (09:01)
[2024-07-12] MEDS: nifeDIPine ER 30 MG TAB PO SCH (09:01)
[2024-07-12] MEDS ORDERED: NIFE-40 PO (09:45)
[2024-07-12] MEDS ORDERED: VERA240T96 PO (09:45)
--- NOTE | 2024-07-12 11:03 | PN ---
Cardiology Progress Note Date of Service: 07/12/2024 Attending Change Management Facilitator: Dr. Juarez Patricia Reason for Consult: Elevated troponin Problem List: -Hypertensive emergency -Leukocytosis -Gastroenteritis -Volume depletion -DIAN -Elevated troponin (type II [place]) -Elevated CK levels, improving -Normal LV systolic function (LVEF: 60-65% by echo done 07/11/2024) -PVCs -CAD s/p PCI with JESUS placement (Resolute Integrity 3.0x26 mm) in the mid RCA done 03/01/2012, PCI with JESUS placement (Resolute Integrity 3.0x30 mm) in the proximal RCA done on 03/24/2013, and PCI with JESUS placement (Resolute Integrity 3.5x18 mm) in the proximal Ramus intermediate done on 07/10/[address] Chester Wood at [facility] in [place], [place] -[facility] Subjective: This is a 68y/o male who was seen and evaluated at the bedside today. The patient denies any active complaints including chest pain, chest pressure, palpitations, or shortness of breath. As per the nurse, there were no overnight events. Vitals/Labs Vital Signs Date Time Temp Pulse Resp B/P (MAP) Pulse Ox O2 Delivery O2 Flow Rate FiO2 07/12/24 08:16 97.9 63 19 164/70 97 Room Air 07/12/24 08:00 0 21 General: Alert and oriented. NAD HEENT: NC/AT. Oral mucosa is moist. Neck: No masses, JVD, or carotid bruits Lungs: NRD. SCM. Bilateral air entry. CTA. No obvious wheezing, rales or rhonchi. Cardio: Regular rate. Normal S1 and S2. +S4. Ectopic beats noted. PMI was not displaced. Abdomen: Soft. NT. ND. Normal active bowel sounds x 4 quadrants. Extremities: Diminished throughout. Neuro: CN II-XII were grossly intact. No obvious focal deficits. Laboratory Tests 07/12/24 04:32 Assessment: -Hypertensive emergency -Leukocytosis -Gastroenteritis -Volume depletion -DIAN -Elevated troponin (type II [place]) -Elevated CK levels, improving -Normal LV systolic function (LVEF: 60-65% by echo done 07/11/2024) -PVCs -CAD s/p PCI with JESUS placement (Resolute Integrity 3.0x26 mm) in the mid RCA done 03/01/2012, PCI with JESUS placement (Resolute Integrity 3.0x30 mm) in the proximal RCA done on 03/24/2013, and PCI with JESUS placement (Resolute Integrity 3.5x18 mm) in the proximal Ramus intermediate done on 07/10/[address] Chester Wood at [facility] in [place], [place] -[facility] Plan: 1. Hypertensive emergency -Improved control -12H BP range: 134-164/59-72 mmHg -The patient will continue on verapamil SR 120 mg BID and nifedipine ER 30 mg daily. 2. Elevated troponin -Stable -HS troponin I peak: 123 -2D echocardiogram 07/11/2024: Mild concentric LVH with no regional wall motion abnormalities noted. LV systolic function is normal with an estimated LVEF of 60-65% with stage I diastolic dysfunction. Mild LAD. Trace AR, MR, and TR. PASP is normal. No pericardial effusion. -The elevated troponin is thought to be a type II [place] (demand ischemia) induced by the hypertensive emergency and DIAN and not secondary to ACS, thus we do not recommend any further ischemic cardiac workup. -Continue on aspirin 81 mg daily, verapamil SR 120 mg BID, and atorvastatin 40 mg QHS. The patient can be discharged from a Cardiac Standpoint and should follow up with his Primary Change Management Facilitator, Dr. Chester Wood at [facility] in [place], [place], 1-2 weeks after discharge. This case was discussed with my Supervising Physician, Dr. Juarez Patricia, and the above mentioned plan was formulated and agreed upon. -Progress Note written by Shaunna Wheatley, MSN, [employer]ER, AGACNP-BC SHAUNNA WHEATLEY NP Jul 12, 2024 11:03
--- NOTE | 2024-07-12 11:16 | NUR ---
PATIENT DISCHARGED. EDUCATED ON NEW MEDICATIONS AND HOME MEDICATIONS TO CONTINUE AND STOP. PATIENT CALLED [facility] AWAITING PEDIATRIC HOSPITALIST .
[2024-07-12 12:00] VITALS: BP 129/45; PULSE 61; RESP 19; TEMP 98.3
--- NOTE | 2024-07-12 17:53 | DS ---
Discharge Summary Hospital Course Summary: This is a 68-year-old male with past medical history of coronary artery disease, hypertension and hyperlipidemia who presents to the ED for complaints of palpitation which started yesterday morning and he checked his blood pressure and it was 210/100 he said. Patient states he was seen by his primary care doctor today and was sent to the emergency department for an abnormal EKG. Patient reports in the clinic his systolic blood pressure was 220 and he was given medication prior to ER arrival. Patient reports he has history of ST depressions for the past 20 years. Seen and examined patient in the ER awake alert and coherent. Patient denies chest pain, shortness of breath, nausea, vomiting and abdominal pain. Patient denies headache. Latest vital signs temperature 98.1, heart rate 66, blood pressure 159/75 saturation 97% on room air. Labs WBC 23 with negative left shift of neutrophils 84, hemoglobin 17, hematocrit 49, platelet count 144. Chloride 100, BUN 25, creatinine 1.6, GFR 46 glucose 137 total CK 89 troponin 135 to 111 BNP 123. Chest x-ray result is normal. EKG result revealed sinus rhythm heart rate [address] depression inferior leads. While in the ER patient received aspirin 325 mg p.o. we will admit patient for further medical management. This patient was admitted and further cardiac workup was done. Patient was also evaluated by the managing member for which no further cardiac intervention was needed to be done. New medication was started by managing member for adjustment on his blood pressure and discontinued current antihypertensive such as amlodipine and lisinopril including metoprolol. Patient was then started with nifedipine 30 mg daily and verapamil 120 mg p.o. b.i.d.. Patient's blood pressure has improved hence patient was discharged home due to stable hemodynamic. Advised patient to follow up with his PCP in 2-3 days. Patient will also need to follow up with managing member in one week. Patient verbalized understanding. Hose Coupling Joiner(s): Dr. Aguila, managing member Procedure(s): [facility] [address] [place] [id number] IMAGING REPORT Signed PATIENT: WILTON OROZCO MR#: [id number] : 1955 SEX: M AGE: 68 LOCATION: [facility] ORDER 19 STATUS: ADM IN REPORT#: [id number] SERVICE [id number] REASON: palpitation ORDERING PHYSICIAN: ANTONIO DEAN PROCEDURE: ECHO CMP - ECHO 2-D COMPLETE APPROVED REPORT EXAM: Two-dimensional and M-mode echocardiogram with Doppler and color Doppler. INDICATION ICD: Palpitations 2D Dimensions RVDd 4.1 cm LVEF(%) 77.1 (>50%) LVED Vol(simp.) 67.1 mL IVSd 0.9 (0.7-1.1cm) FS(%) 45 % LVES Vol(simp.) 24.9 mL LVDd 4.1 (3.8-5.6cm) LA (2D) 4.1 (1.6-4.0cm) LVEF(%, simp.) 63 % PWd 1.3 (0.7-1.1cm) Ao Root(2D) 2.9 (2.0-3.7cm) LA ESV INDEX (BP) 35.27 mL/m2 LVDs 2.2 (2.5-4.0cm) LVOT diam 2.1 (1.8-2.4cm) IVC diam 1.6 cm Deformation Strain Apical 4 -20.1 % Apical 2 -19.4 % Apical 3 -18.7 % Global Strain -19.4 % M-Mode Dimensions EPSS 0.5 cm LA (MM) 4.3 (1.6-4.0cm) Ao Root(MM) 2.8 (2.0-3.7cm) Aortic Valve AoV Vmax 1.8 m/s Ao Peak GR 12.6 mmHg LVOT Vmax 1.4 m/s AoV VTI 0.4 m Ao Mean GR 7.4 mmHg LVOT VTI 0.32 m GRACY (VMAX) 2.79 cm2 GRACY (VTI) 2.8 cm2 Mitral Valve MV E Vmax 63.9 cm/s DECEL Time 283 ms MV A Vmax 94.7 cm/s P 1/2 T 93 ms E/A ratio 0.7 MVA (PHT) 2.4 cm2 TDI E/E' Medial 8.5 E/E' Lateral 6.7 Medial E' Peak V 7.54 cm/s Lateral E' Peak V 9.53 cm/s Pulmonary Valve PV Vmax 1.4 m/s PV Peak GR 8.4 mmHg Left Ventricle The left ventricle is normal size. No regional wall motion abnormalities noted. Mild concentric left ventricular hypertrophy. Left ventricular systolic function is normal, estimated LVEF 60 to 65%. Stage I diastolic dysfunction. Right Ventricle The right ventricle is normal size. The right ventricular systolic function is normal. Atria The left atrium is mildly dilated, 35 mL/m. The right atrium size is normal. Aortic Valve Aortic valve is trileaflet. The leaflets are thickened and calcified. Trace aortic regurgitation. There is aortic sclerosis without stenosis, peak velocity 1.7 m/s, mean gradient 7 mmHg. Mitral Valve The mitral valve is normal in structure. Trace mitral regurgitation. There is no mitral valve stenosis. Tricuspid Valve The tricuspid valve is normal in structure. Trace tricuspid regurgitation. RVSP is normal. Pulmonic Valve Pulmonic valve is not well visualized. Great Vessels The aortic root is normal in size. The IVC is normal in size and collapses >50% with inspiration. Pericardium There is no pericardial effusion. Conclusion The left atrium is mildly dilated, 35 mL/m. Mild concentric left ventricular hypertrophy. No regional wall motion abnormalities noted. Left ventricular systolic function is normal, estimated LVEF 60 to 65%. Stage I diastolic dysfunction. Trace aortic regurgitation. Trace mitral regurgitation. Trace tricuspid regurgitation. PASP is normal. There is no pericardial effusion. DICTATED BY: GAVINO AGUILA MD DATE: 07/11/24 0925 ELECTRONICALLY SIGNED BY: GAVINO AGUILA MD DATE: 07/12/[address] [address] IMAGING REPORT Signed PATIENT: WILTON OROZCO MR#: [id number] : 1955 SEX: M AGE: 68 LOCATION: [facility] ORDER 20 STATUS: REG ER REPORT#: [id number] SERVICE 19 REASON: CHEST PAIN ORDERING PHYSICIAN: SAMSON OLSON PROCEDURE: CXR1VW - CHEST 1VW Exam Type: CHEST 1VW Clinical Information: CHEST PAIN Comparison: None Findings: The lungs are clear of infiltrates. The heart is normal in size. The bony and soft tissue structures of the chest are unremarkable. Impression: Clear lungs. DICTATED BY: KERWIN LARIOS MD DATE: 07/10/241757 ELECTRONICALLY SIGNED BY: KERWIN LARIOS MD DATE: 07/10/241801 Assessment/Plan: Discharge diagnoses Elevated troponin POA 2/2 uncontrolled hypertension Uncontrolled hypertension POA Severe leukocytosis POA Acute kidney injury POA Hyperglycemia POA Elevated BNP POA Coronary artery disease with cardiac stent POA Admitting diagnoses Elevated troponin POA Uncontrolled hypertension POA Severe leukocytosis POA Acute kidney injury POA Hyperglycemia POA Elevated BNP POA Coronary artery disease with cardiac stent POA Discharge Instructions: Follow-up with PCP in 2-3 days Follow-up with managing member in one week Home Medications: Active Scripts Verapamil HCl (Calan Sr/Isoptin Sr) 240 Mg Srtab, 120 MG PO BID, #60 TAB.SR 0 Refills Prov:RADHA ESPINOZA 07/12/24 Nifedipine (Nifedipine ER) 30 Mg Tab.er.24, 30 MG PO DAILY, #30 TAB 0 Refills Prov:RADHA ESPINOZA 07/12/24 Reported Medications Atorvastatin Calcium (Atorvastatin Calcium) 40 Mg Tablet, 1 TAB PO DAILY 07/11/24 Aspirin (Aspirin EC) 81 Mg Tablet., 1 TAB PO DAILY for 30 Days, #30 TAB 0 Refills 07/11/24 Discontinued Reported Medications Metoprolol Tartrate (Lopressor) 25 Mg Tab, 1 TAB PO DAILY 07/11/24 Lisinopril (Lisinopril) 10 Mg Tablet, 1 TAB PO BID 07/11/24 Amlodipine Besylate (Amlodipine Besylate) 5 Mg Tablet, 2 TAB PO DAILY 07/11/24 New Medications: Nifedipine (Nifedipine ER) 30 Mg Tab.er.24 30 MG PO DAILY, #30 TAB 0 Refills Verapamil HCl (Calan Sr/Isoptin Sr) 240 Mg Srtab 120 MG PO BID, #60 TAB.SR 0 Refills Continued Medications: Aspirin (Aspirin EC) 81 Mg Tablet.dr 1 TAB PO DAILY for 30 Days, #30 TAB 0 Refills Atorvastatin Calcium (Atorvastatin Calcium) 40 Mg Tablet 1 TAB PO DAILY Discontinued Medications: Amlodipine Besylate (Amlodipine Besylate) 5 Mg Tablet 2 TAB PO DAILY Lisinopril (Lisinopril) 10 Mg Tablet 1 TAB PO BID Metoprolol Tartrate (Lopressor) 25 Mg Tab 1 TAB PO DAILY Time spent arranging discharge: 31-60 minutes ATTESTATION BY PHYSICIAN I have seen and examined the patient. I reviewed the documentation, medical decision making, and treatment plan as noted by the mid-level provider above. I agree with the findings and plan of care. Karen Celis MD, [facility] Jul 12, 2024 17:53
== END 2024-07-12 13:15 | disposition home or self-care (01) | DRG 682 ==
LOC: EDH 17:13 → EDHIP 23:09 → 4AH 07-11 03:24
PROVIDERS: ADMIT Internal Medicine; ATTEND Internal Medicine
DX: N17.9 Acute kidney failure, unspecified (principal); I21.A1 Myocardial infarction type 2; I16.1 Hypertensive emergency; I10 Essential (primary) hypertension; D72.829 Elevated white blood cell count, unspecified; R73.9 Hyperglycemia, unspecified; I25.10 Atherosclerotic heart disease of native coronary artery without angina pectoris; E78.5 Hyperlipidemia, unspecified; E86.9 Volume depletion, unspecified; I49.3 Ventricular premature depolarization; K52.9 Noninfective gastroenteritis and colitis, unspecified; Z79.899 Other long term (current) drug therapy; Z95.5 Presence of coronary angioplasty implant and graft; Z79.82 Long term (current) use of aspirin
CPT/HCPCS: 36415; 71045; 80048; 80053; 80061; 80305; 81001; 82550; 83036; 83735; 83880; 84443; 84484; 85025; 85027; 85651; 93005; 93306; 93356; G0378; J0360; J0696; J1644; J2405